=== PATIENT | male | born 2005 | race Caucasian/White ===

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

== ENCOUNTER → 2023-12-06 | Outpatient (CLI) | payer MEDICAID, SELFPAY ==
--- OUTSIDE RECORDS SUMMARY | 2023-12-06 17:08 | XMS RPT_ITS | CCD ---
Author Name Unknown Address [address] [place] [address] [address] [place] [id number] Organization [facility] Care Team Providers Care Staff Appraiser Name Role Phone NONE, NONE Primary Care Unavailable SINCLAIR DO~[phone], SINCLAIR SAMMI K Admitting Unavailable SINCLAIR DO~[phone], SINCLAIR SAMMI K Attending Unavailable MADI GOULD MD Consulting Unavailable MADI GOULD MD Consulting Unavailable NONE, NONE Consulting Unavailable NONE, NONE Consulting Unavailable NAZARIO LAY APRN Consulting Unavailab le NAZARIO LAY APRN Consulting Unavailab le Problems Problem Classification Problem Date Documented Da te Episodic/Chronic Intestinal infection (1 source) Viral intestinal infection, unspecified; Translations: [VIRAL INTESTINAL INFECTION UNSPEC] Onset: 02-21-2023 Episodic Nausea and vomiting (2 sources) Nausea with vomiting, unspecified; Translations: [NAUSEA WITH VOMITING UNSPECIFIED] Onset: 02-14-2023 Episodic Unclassified (1 source) CONTACT W/AND (SUSP) EXPOS COVID-19; Translations: [CONTACT W/AND (SUSP) EXPOS COVID-19] Onset: 02-21-2023 Results Test Name Value Interpretation Reference Range Facil ity Encounters Encounter Date Encounter Type Care Provider Facility Start: 02-14-2023 End: 02-14-2023 ambulatory NONE NONE Facility:[facility] Payers Date Payer Category Payer Unknown [id number] 1961 Unknown [id number] Clinical Note 11-06-2021 Note Date & Type Note Facility 11-06-2021 Note Madi is a 16 y.o. m stanislaw who presents to our office today for evaluation secondary to a history of rash and only rash when on amoxicillin around age 1 and at baseline, he may have some nasal and sinus symptoms at times and takes Flonase and Zohreh. Per mom, he had hives and only hives with amoxicillin and this was probably for otitis and he did not have any other issues and again, this seems to have been around age 1 (I do not have any records). Mom is not sure if he received Cefdinir or any Cephalosporin since that episode. Recently he had a pilonidal cystectomy per Dr. Sanchez in [place] and was given an antibiotic but mom does not recall any specifics/waht was given. He says that consistent use of Zohreh and Flonase helps with his nasal symptoms. His history is unremarkable for asthma or inhaler use and he now tolerates a regular diet without issues and presents with his mom for evaluation. Environmental Survey/Social History: Lives with parents and 2 brothers Special Needs: None Preferred Language: Moroccan Pets: Yes: 1 dog School/Daycare: Yes: freshman in college at [employer] Smoking/Alcohol/Drug Use or Exposure: No Recreational Activities/Sports: No Review of Systems/Past Medical History: Constitutional: denies fever, chills, weight loss. Eyes: denies vision changes, color blindness. Ears, nose throat and mouth: see narrative above. Some nasal and sinus symptoms at times. Respiratory: denies wheezing, cough or chest tightness at this time/ see above narrative. Gastrointestinal: denies diarrhea, constipation, emesis. Genitourinary: denies dysuria or urine odor. Skin/integumentary: denies nail changes or other rash. Neurologic: denies seizures, weakness or speech problems. Hematologic/lymphatic: denies pallor. Allergic/Immunologic: see narrative above. No overt food issues. *Regarding bee stings, no issues (he has been stung). History reviewed. No pertinent past medical history. History reviewed. No pertinent surgical history. Pilonidal cyst surgery. Current Outpatient Medications Medication Sig Dispense Refill fexofenadine (ZOHREH) 60 MG tablet 1 tablet fluticasone (FLONASE) 50 MCG/ACT nasal spray by Each Nare route daily No current facility-administered medications for this visit. History reviewed. No pertinent family history. Allergies: NKDA. PE: Nursing note and Vital signs reviewed. BP 116/66 Pulse 78 Resp 16 Ht 175 cm Wt 82.7 kg BMI 27.00 kg/m Constitutional: He was awake, alert and in no apparent distress. Conjunctivae: clear. Nasal mucosa: mildly pale and edematous. Nasal turbinates: mildly enlarged. No polyps visualized. Tympanic membranes: clear. Throat: clear. He did not have cervical adenopathy. Lungs: clear to auscultation bilaterally. Cardio: regular rate and rhythm. Musculoskeletal: good upper extremity strength bilaterally. Neuro: oriented to time and place, good interaction. Skin: upper extremities clear at this visit. *After discussion with him and his mother, intradermal testing was done to Penicillin G (10,000 units/ml), Pre-Pen (metabolite of PCN), Ampicillin (2.5mg/ml) and Ceftriaxone 1mg/ml and epicutaneous testing to multiple environmental allergens revealed good controls and Madi tested positive for the following environmental allergens; Perry pollen and and cockroach and lambquarters weed and all antibiotic testing was negative. Impression Madi Malone is an 16 yo male with a history of rash while on amoxicillin around age 1 and he had rash and only rash and a history of chronic rhinitis that seems controlled with consistent use of Zohreh and Flonase. Antibiotic testing was negative and these results correlate with his history. Environmental allergen testing was + to [place] pollen and cockroach and lambsquarter and he was otherwise negative. The benefits, side effects of the treatment and treatment alternatives were discussed. Plan 1. Regarding skin testing today, testing was negative to Penicillin G (10,000 units/ml), Pre-Pen (metabolite of PCN), Ampicillin (2.5mg/ml) and Ceftriaxone 1mg/ml (Cephalosporin)- this means his risk of reaction to a future dose of PCN, Amoxicillin or Cephalosporin is no greater than any other individual in the general population [hence risk is low, but not 0%]. However, this testing does not rule out the possibility of a rash/late reaction more towards the end a course of amoxicillin/PCN/cephalosporin and this testing also does not rule out the possibility of something called a serum-sickness type response secondary to the medication (these types of responses are not IgE mediated and no way exists to test for these). 2. Please see information on chronic and allergic rhinitis (www.AAAAI.org). -He appears to at least have at least allergic rhinitis. Cigarette smoke exposures will be associated with worsening symptoms. 3. On 11/06/21, he was tested to cat, dog, dust m (more content not included)... [facility] Summary Purpose Family History No Family History Records FoundNo Family History Records FoundNo Family History Records Found Advance Directives No Advanced Directives Records FoundNo Advanced Directives Records FoundNo Advanced Directives Records Found Additional Source Comments (unrecognized sect ion and content) No Status Records FoundNo Status Records FoundNo Status Records Found INFORMATION SOURCE (unrecogn ized section and content) DATE CREATED AUTHOR AUTHOR'S ORGANIZ ATION 11/07/2021 [facility] DATE CREATED AUTHOR AUTHOR'S ORGANIZ ATION 02/24/2023 [facility] FOR RECORDS PERTAINING TO PATIENTS WHO ARE OR HAVE BEEN ENROLLED IN A CHEMICAL DEPENDENCY/SUBSTANCEABUSE PROGRAM, SOME INFORMATION MAY BE OMITTED. This clinical summary was aggregated from multiple sources. Caution should be exercised in using it in the provision of clinical care. This summary normalizes information from multiple sources, and as a consequence, information in this document may materially change the coding, format and clinical context of patient data. In addition, data may be omitted in some cases. CLINICAL DECISIONS SHOULD BE BASED ON THE PRIMARY CLINICAL RECORDS. [employer] provides no warranty or guarantee of the accuracy or completeness of information in this document.
[2023-12-06 17:24] LABS: Absolute Lymphocyte Count 1.87 X10^3/uL (0.83-4.51); Absolute Neutrophil Count 5.1 X10^3/uL (2.0-7.7); Basophil# 0.06 X10^3/uL; Basophil% 0.8 % (0-1); Eosinophil# 0.15 X10^3/uL; Hematocrit 46.9 % (40-54); Lymphocyte # 1.87 X10^3/ul (0.83-4.51); Lymphocyte % 24.5 % (19-41); Mean Corp Hgb Conc 34.1 g/dL (32-36); Mean Corpuscular Hgb 29.3 pg (27.0-32.0); Mean Corpuscular Volume 85.9 fL (80-94); Mean Platelet Vol. 10.3 fl (6.2-12.0); Monocyte# 0.46 X10^3/uL; NRBC Flagged by Analyzer 0 % (0-5); Neutrophil # 5.08 X10^3/uL (2.7-7.7); Neutrophil % 66.4 % (47-70); Platelet Count 212 K/mm3 (150-450); RBC Distribution Width CV 12.6 % (11.6-14.6); RBC Distribution Width SD 38.6 fl (35.1-43.9); Red Blood Count 5.46 M/mm3 (4.6-6.2); White Blood Count 7.6 K/mm3 (4.4-11.0)
[2023-12-06 17:57] LABS: Erythrocyte Sedimentation Rate 1 mm/hr (0-20)
[2023-12-06 18:12] LABS: ALB/GLOB Ratio 1.3 RATIO (0.9-2.4); AST(SGOT) 153 U/L (15-37); Alanine Aminotransfer ALT/SGPT 76 U/L (16-61); Albumin, Serum 4.4 g/dL (3.2-5.0); Alkaline Phosphatase 88 U/L (45-117); Anion Gap 7 (5-15); BUN 18 mg/dL (7-18); BUN/Creat Ratio 15.1 RATIO (10-20); Calcium,Total 9.6 mg/dL (8.5-10.1); Chloride 103 mmol/L (98-107); Creatinine, Serum 1.19 mg/dL (0.70-1.30); EST Glomerular Filtration Rate 82 mL/min (>60); Est Glom Filt Rate - Afr Amer 99 mL/min (>60); Globulin 3.4 g/dL (2.2-4.2); Glucose 77 mg/dL (74-106); Potassium 3.2 mmol/L (3.5-5.1); Protein, Total 7.8 g/dL (6.4-8.2); Sodium Level 139 mmol/L (136-145); Thyroid Stim Hormone (TSH) 1.39 uIU/mL (0.358-3.74)
[2023-12-09 16:09] LABS: Deamidated Gliadin IgA 2 units (0-19); Deamidated Gliadin IgG 3 units (0-19); Endomysial Antibody IgA Negative (Negative); Immunoglobulin A 53 mg/dL (90-386); t-Transglutaminase IgA <2 U/mL (0-3)
[2023-12-09 20:09] LABS: Beef <0.10 kU/L (Class 0); Chocolate <0.10 kU/L (Class 0); Codfish <0.10 kU/L (Class 0); Corn <0.10 kU/L (Class 0); Egg, Whole <0.10 kU/L (Class 0); Milk (Cow) <0.10 kU/L (Class 0); Mussels <0.10 kU/L (Class 0); Peanut <0.10 kU/L (Class 0); Pork <0.10 kU/L (Class 0); Salmon <0.10 kU/L (Class 0); Shrimp <0.10 kU/L (Class 0); Soybean <0.10 kU/L (Class 0); Tuna <0.10 kU/L (Class 0); Wheat 0.12 kU/L (Class 0/I)
== END | disposition home or self-care (01) ==
LOC: MTLAB 15:16
PROVIDERS: PCP Family Medicine; Referring Provider Family Medicine; Visit Provider Family Medicine
DX: K58.9 Irritable bowel syndrome, unspecified (principal)
CPT/HCPCS: 82271; 36415; 80053; 82274; 82784; 83516; 84443; 85025; 85652; 86003; 86005; 86255; 87177; 87209; 87506